=== PATIENT | female | born 1950 | race Caucasian/White ===

== ENCOUNTER 2017-04-18 08:25 | Emergency (ER) | payer BC ==
--- NOTE | 2017-04-18 08:33 | UC ---
Bite Injury/Animal HPI - HPI Summary HPI Summary: 66 YEAR OLD FEMALE PRESENTS WITH COMPLAINS INSECT BITE. - History of Current Complaint Stated Complaint: INSECT BITE Time Seen by Provider: 04/18/17 08:27 - Allergies/Home Medications Allergies/Adverse Reactions: Allergies Allergy/AdvReac Type Severity Reaction Status Date / Time Barbiturates Allergy See Comment Verified 04/18/17 08:30 PMH/Surg Hx/FS Hx/Imm Hx - Surgical History Surgical History: None - Social History Alcohol Use: "as much as I can ... at least two drinks a day" Alcohol Amount: varies depends on mood per pt Substance Use Type: None Smoking Status (MU): Former Smoker Length of Time of Smoking/Using Tobacco: 10 years When Did the Patient Quit Smoking/Using Tobacco: 1977 - Immunization History Most Recent Influenza Vaccination: Not the Review of Systems Constitutional: Negative Skin: Rash Eyes: Negative ENT: Negative Respiratory: Negative Cardiovascular: Negative Gastrointestinal: Negative Genitourinary: Negative Motor: Negative Neurovascular: Negative Musculoskeletal: Negative Neurological: Negative Psychological: Negative All Other Systems Reviewed And Are Negative: Yes Physical Exam Triage Information Reviewed: Yes Eye Exam: Normal ENT Exam: Normal Dental Exam: Normal Neck exam: Normal Neck: Positive: 1 Respiratory Exam: Normal Cardiovascular Exam: Normal Abdominal Exam: Normal Musculoskeletal Exam: Normal Neurological Exam: Normal Psychological Exam: Normal Skin: Positive: rashes Bite Injury Course/Dx - Differential Dx/Diagnosis Provider Diagnoses: BULLS EYE RASH Discharge - Discharge Plan Condition: Stable Disposition: HOME Prescriptions: DOXYcycline CAP(*) [DOXYcycline 100MG CAP(*)] 100 mg PO DAILY #56 cap Patient Education Materials: Insect Bite or Sting (ED) Referrals: No Primary Care Phys,NOPCP [Primary Care Provider] - Addendum entered and electronically signed by Donald To MD 04/18/17 16:37 :
[2017-04-18 08:36] VITALS: BP 135/88
[2017-04-21 16:16] LABS: Lyme Disease IgG Ab WB Negative (Negative)
--- NOTE | 2017-04-21 21:54 | ED ---
Progress - Progress Note Progress Note: SPOKE TO PATIENT TO INCREASE HER CHANGE HER DOXYCYCLINE DOSE TO 100 BID. SHE HAD LABS DRAWN AND THEY WERE NEGATIVE FOR LYME BUT SHE IS ADVISED TO CONTINUE HER MEDICATION WITH THE NEW DIRECTIONS. Course/Dx - Diagnoses Provider Diagnoses: Rash
== END 2017-04-18 09:10 | disposition home or self-care (01) ==
LOC: UCCORT 08:25
DX: R21 Rash and other nonspecific skin eruption (principal); Z87.891 Personal history of nicotine dependence
CPT/HCPCS: 86617; 86618; 99212; G0463

== ENCOUNTER 2017-05-06 07:45 | Emergency (ER) | payer BC ==
[2017-05-06 07:55] VITALS: BP 117/70
--- NOTE | 2017-05-06 08:02 | UC ---
Bite Injury/Animal HPI - HPI Summary HPI Summary: 67 year old female presents for a recheck of her rash. - History of Current Complaint Chief Complaint: UCGeneralIllness Stated Complaint: LYME DISEASE RE CHECK Time Seen by Provider: 05/06/17 07:57 - Allergies/Home Medications Allergies/Adverse Reactions: Allergies Allergy/AdvReac Type Severity Reaction Status Date / Time Barbiturates Allergy See Comment Verified 05/06/17 07:55 PMH/Surg Hx/FS Hx/Imm Hx - Surgical History Surgical History: None Surgery Procedure, Year, and Place: lap - Social History Alcohol Use: Rare Alcohol Amount: varies depends on mood per pt Substance Use Type: None Smoking Status (MU): Former Smoker Length of Time of Smoking/Using Tobacco: 10 years When Did the Patient Quit Smoking/Using Tobacco: 1977 - Immunization History Most Recent Influenza Vaccination: Not the Season Review of Systems Constitutional: Negative Skin: Rash - resolving Eyes: Negative ENT: Negative Respiratory: Negative Cardiovascular: Negative Gastrointestinal: Negative Genitourinary: Negative Motor: Negative Neurovascular: Negative Musculoskeletal: Negative Neurological: Negative Psychological: Negative All Other Systems Reviewed And Are Negative: Yes Physical Exam Triage Information Reviewed: Yes Vital Signs: Initial Vital Signs Temp 36.9 C 05/06/17 07:51 Pulse 63 05/06/17 07:51 Resp 16 05/06/17 07:51 BP 117/70 05/06/17 07:51 Pulse Ox 98 05/06/17 07:51 Eye Exam: Normal ENT Exam: Normal Dental Exam: Normal Neck exam: Normal Neck: Positive: 1 Respiratory Exam: Normal Cardiovascular Exam: Normal Abdominal Exam: Normal Musculoskeletal Exam: Normal Neurological Exam: Normal Psychological Exam: Normal Skin: Positive: rashes - resolving Bite Injury Course/Dx - Differential Dx/Diagnosis Provider Diagnoses: rash Discharge - Discharge Plan Condition: Stable Disposition: HOME Patient Education Materials: Lyme Disease (ED), Tick Bite (ED) Referrals: No Primary Care Phys,NOPCP [Primary Care Provider] -
== END 2017-05-06 08:10 | disposition home or self-care (01) ==
LOC: UCCORT 07:45
DX: R21 Rash and other nonspecific skin eruption (principal); Z87.891 Personal history of nicotine dependence
CPT/HCPCS: 86617; 86618; 99211; G0463

== ENCOUNTER 2017-06-03 07:59 | Emergency (ER) | payer BC ==
[2017-06-03 08:10] VITALS: BP 126/74
--- NOTE | 2017-06-03 08:53 | UC ---
Skin Complaint HPI - HPI Summary HPI Summary: 67 yo female presented weeks ago with rash c/w EM treated for Lyme disease has blood test consistent with early LD (+IgM) Was told to return for confirmation She is asymptomatic - History of Current Complaint Chief Complaint: UCGeneralIllness Time Seen by Provider: 06/03/17 08:28 Stated Complaint: RECHECK-LYME Hx Obtained From: Patient ?: Yes Onset/Duration: Resolved Aggravating: Nothing Alleviating: Nothing Associated Signs & Symptoms: Positive: Rash - Allergy/Home Medications Allergies/Adverse Reactions: Allergies Allergy/AdvReac Type Severity Reaction Status Date / Time Barbiturates Allergy See Comment Verified 06/03/17 08:10 Home Medications: Home Medications NK [No Home Medications Reported] 06/03/17 [History Confirmed 06/03/17] Review of Systems Constitutional: Negative Skin: Negative Eyes: Negative ENT: Negative Respiratory: Negative Cardiovascular: Negative Gastrointestinal: Negative Genitourinary: Negative Motor: Negative Neurovascular: Negative Musculoskeletal: Negative Neurological: Negative Psychological: Negative All Other Systems Reviewed And Are Negative: Yes PMH/Surg Hx/FS Hx/Imm Hx Previously Healthy: Yes - Surgical History Surgical History: None Surgery Procedure, Year, and Place: abdominal laparoscopy - Family History Known Family History: Positive: Hypertension - Social History Alcohol Use: Rare Alcohol Amount: varies depends on mood per pt Substance Use Type: None Smoking Status (MU): Former Smoker Length of Time of Smoking/Using Tobacco: 10 years When Did the Patient Quit Smoking/Using Tobacco: 1977 - Immunization History Most Recent Influenza Vaccination: Not the Season Physical Exam Triage Information Reviewed: Yes Appearance: Well-Appearing, No Pain Distress, Well-Nourished Vital Signs: Initial Vital Signs Temp 98.4 F 06/03/17 08:03 Pulse 58 06/03/17 08:03 Resp 18 06/03/17 08:03 BP 126/74 06/03/17 08:03 Vital Signs Reviewed: Yes Eyes: Positive: Conjunctiva Clear ENT: Positive: Hearing grossly normal. Negative: Nasal congestion, Nasal drainage, Trismus, Muffled/hoarse voice Respiratory: Positive: Lungs clear, Normal breath sounds, No respiratory distress Cardiovascular: Positive: RRR, No Murmur Neurological: Positive: Alert Psychological Exam: Normal Skin Exam: Normal Course/Dx - Course Course Of Treatment: I informed patient that based on her presentation and tests that I am sure she had Lyme. I feel that repeat testing will confirm what we already know. She declined test - Diagnoses Provider Diagnoses: follow up lyme disease Discharge - Discharge Plan Condition: Stable Disposition: HOME Patient Education Materials: Lyme Disease (ED) Referrals: Siobhan Primary Care Phys,NOPCP [Primary Care Provider] - Additional Instructions: You had a rash consistent with Lyme disease You had a blood test consistent with early Lyme disease you were treated for Lyme disease I don't think it is necessary to re stick for for a test to confirm that this was Lyme disease
== END 2017-06-03 08:59 | disposition home or self-care (01) ==
LOC: UCCORT 07:59
DX: A69.20 Lyme disease, unspecified (principal); Z87.891 Personal history of nicotine dependence
CPT/HCPCS: 99211; G0463

== ENCOUNTER 2021-03-21 09:04 | Observation (INO) ==
[2021-03-21] MEDS ORDERED: NS 0.9% 1000 ml BAG 1,000 ML IV ONE ×2 (09:41→11:23)
[2021-03-21 10:11] LABS: Albumin/Globulin Ratio 1.3 (1-3); C Reactive Protein 105.63 mg/L (<8.01); Calcium 9.3 mg/dL (8.6-10.3); EGFR African American 100.1 (>60); EGFR Non-African American 82.7 (>60); Globulin 3.1 g/dL (2-4); Potassium 4.1 mmol/L (3.5-5.0); Total Bilirubin 1.1 mg/dL (0.2-1.0); Total Protein 7.1 g/dL (6.4-8.9)
[2021-03-21] MEDS ORDERED: Iohexol 300 (CONTRAST) 10 ML SDV IV ONE (10:15)
[2021-03-21 10:41] LABS: ABS Eosinophils 0.1 10^3/ul (0-0.6); ABS Monocytes 0.5 10^3/ul (0-0.8); ABS Neutrophils 6.1 10^3/ul (1.5-7.7); Hematocrit 39 % (35-47); Hemoglobin 13.8 g/dL (12.0-16.0); Lymphocyte % 22.7 %; Mean Corpuscular HGB Conc 36 g/dL (31-36); Mean Corpuscular Hemoglobin 30 pg (27-31); Mean Corpuscular Volume 85 fL (80-97); Mean Platelet Volume 8.8 fL (7.4-10.4); Platelet Count 193 10^3/uL (150-450); Red Blood Count 4.56 10^6 /uL (3.70-4.87); Red Cell Distribution Width 13 % (10-15); White Blood Count 8.7 10^3/uL (3.5-10.8)
[2021-03-21 11:20] LABS: Urine Appearance Clear; Urine Bilirubin Negative (Negative); Urine Blood 1+ (Negative); Urine Color Yellow; Urine Glucose Negative (Negative); Urine Ketones Negative (Negative); Urine Nitrite Negative (Negative); Urine Protein Negative (Negative); Urine Specific Gravity 1.012 (1.002-1.030); Urine Urobilinogen Negative (Negative)
[2021-03-21 11:28] LABS: Urine Bacteria 1+ (Absent); Urine Red Blood Cell Trace(0-2/hpf) (Absent); Urine Squamous Epithelial Cell Present (Absent); Urine White Blood Cell Trace(0-5/hpf) (Absent)
[2021-03-21] MEDS ORDERED: Piperacillin/Tazobac ADVAN 3.375 GM in NS 0.9% 100 ml BAG 100 ML IVPB ONE (12:56)
[2021-03-21] MEDS ORDERED: Lactated Ringers 1000 ml BAG 1,000 ML IV SCH (13:00)
[2021-03-21] MEDS ORDERED: Naloxone 0.4 mg VIAL 0.4 mg/ml 1 ml VIAL IV PRN ×3 (13:50→16:36)
[2021-03-21] MEDS ORDERED: DiMENhydriNATE IV 50 mg/ml 1 ml VIAL IV PUSH PRN ×3 (13:50→16:34)
[2021-03-21] MEDS ORDERED: fentaNYL 100 mcg/2 ml 50 MCG/ML VIAL IV PRN ×2 (13:50→16:34)
[2021-03-21] MEDS ORDERED: Midazolam 2 mg/2 ml VIAL 1 mg/ml 2 ml VIAL (2 mg) ONE (13:52)
[2021-03-21] MEDS ORDERED: fentaNYL 100 mcg/2 ml 50 MCG/ML VIAL ONE ×2 (13:53→15:29)
[2021-03-21] MEDS ORDERED: Lidocaine 2% PF 5 ML VIAL ONE (13:53)
[2021-03-21] MEDS ORDERED: Propofol 10 MG/ML 20 ML BTL ONE (13:53)
[2021-03-21] MEDS ORDERED: Succinylcholine 200 mg VIAL 20 mg/ml 10 ml VIAL (200 mg) ONE (13:53)
[2021-03-21] MEDS ORDERED: Rocuronium 50 mg VIAL 10 mg/ml 5 ml VIAL (50 mg) ONE (14:17)
[2021-03-21] MEDS ORDERED: Dexamethasone IV 4 MG/ML VIAL 1 ml VIAL ONE (14:31)
[2021-03-21] MEDS ORDERED: Ondansetron 4 mg VIAL 2 MG/ML 2 ml VIAL ONE (14:31)
[2021-03-21] MEDS ORDERED: Acetaminophen IV 1 GM/100ML 100 ML ONE (14:34)
[2021-03-21] MEDS ORDERED: Ondansetron 4 mg VIAL 2 MG/ML 2 ml VIAL IV PRN (15:08)
[2021-03-21] MEDS: fentaNYL 100 mcg/2 ml 50 MCG/ML VIAL IV PRN ×4 (15:30→15:39)
[2021-03-21] MEDS ORDERED: D5W 1/2 NS KCl 20 meq 1000 ml 1,000 ML IV SCH (17:10)
[2021-03-21] MEDS: Piperacillin/Tazobactam VIAL 3.375 GM in NS 0.9% 100 ml BAG 100 ML IVPB SCH (17:23)
[2021-03-22] MEDS: Piperacillin/Tazobactam VIAL 3.375 GM in NS 0.9% 100 ml BAG 100 ML IVPB SCH ×2 (01:33→09:47)
[2021-03-22 06:47] LABS: ABS Lymphocytes 1.4 10^3/ul (1.0-4.8); ABS Monocytes 0.5 10^3/ul (0-0.8); ABS Neutrophils 5.6 10^3/ul (1.5-7.7); Eosinophil % 0.2 %; Hematocrit 31 % (35-47); Hemoglobin 11.2 g/dL (12.0-16.0); Lymphocyte % 18.2 %; Mean Corpuscular HGB Conc 36 g/dL (31-36); Mean Corpuscular Hemoglobin 31 pg (27-31); Mean Corpuscular Volume 85 fL (80-97); Mean Platelet Volume 8.4 fL (7.4-10.4); Platelet Count 160 10^3/uL (150-450); Red Blood Count 3.64 10^6 /uL (3.70-4.87); Red Cell Distribution Width 13 % (10-15); White Blood Count 7.5 10^3/uL (3.5-10.8)
[2021-03-22 07:54] VITALS: BP 92/47
== END 2021-03-22 09:35 | disposition home or self-care (01) ==
LOC: SSU 09:04 → ED 09:04
PROVIDERS: ADMIT Surgery; ATTEND Surgery

== ENCOUNTER 2023-01-04 05:43 | Inpatient (IN) ==
[~2023-01-04 05:43] MED LIST: Naloxone 0.4 mg VIAL 0.4 mg/ml 1 ml VIAL IV PRN; Ondansetron 4 mg VIAL 2 MG/ML 2 ml VIAL IV PRN
[2023-01-04] MEDS ORDERED: Lactated Ringers 1000 ml BAG 1,000 ML IV SCH ×2 (06:00→09:00)
[2023-01-04] MEDS ORDERED: Buffered Lidocaine 1% SYRIN 1 ml INTRADERM ONE (06:00)
[2023-01-04] MEDS ORDERED: ceFAZolin 2 GM in NS PREMIX 2 GM/100 ML BAG IVPB ONE (06:06)
[2023-01-04] MEDS ORDERED: ceFAZolin 2 GM PREMIX 2 GM/50 ML BAG ONE (06:06)
[2023-01-04] MEDS ORDERED: Midazolam 2 mg/2 ml VIAL 1 mg/ml 2 ml VIAL (2 mg) ONE ×2 (06:24→09:59)
[2023-01-04] MEDS ORDERED: Lidocaine 2% PF 5 ML VIAL ONE (06:24)
[2023-01-04] MEDS ORDERED: Propofol 0 MG/0 ML BTL ONE (06:24)
[2023-01-04] MEDS ORDERED: fentaNYL 100 mcg/2 ml 50 MCG/ML VIAL ONE ×4 (06:57→10:09)
[2023-01-04] MEDS ORDERED: Rocuronium 50 mg VIAL 10 mg/ml 5 ml VIAL (50 mg) ONE (06:57)
[2023-01-04] MEDS ORDERED: Dexamethasone IV 4 MG/ML VIAL 1 ml VIAL ONE (06:58)
[2023-01-04] MEDS ORDERED: Ondansetron 4 mg VIAL 2 MG/ML 2 ml VIAL ONE ×2 (06:58→11:53)
[2023-01-04] MEDS ORDERED: Propofol 10 MG/ML 20 ML BTL ONE (06:58)
[2023-01-04] MEDS ORDERED: Ondansetron ODT 4 mg TAB 4 MG TAB PO PRN (08:22)
[2023-01-04] MEDS ORDERED: Lactulose 30 ml UDC PO PRN (08:22)
[2023-01-04] MEDS ORDERED: Magnesium Hydroxide LIQ 30 ML UDC PO PRN (08:22)
[2023-01-04] MEDS ORDERED: Morphine 2 MG/ML SYRINGE IV PRN (08:22)
[2023-01-04] MEDS ORDERED: Ondansetron 4 mg VIAL 2 MG/ML 2 ml VIAL IV PRN (08:22)
[2023-01-04] MEDS ORDERED: Glycopyrrolate IV 0.2 MG/ML 1 ML VIAL ONE (08:22)
[2023-01-04] MEDS ORDERED: ROPIVACAINE 5 MG/ML 30 ML BTL (0.5%) ONE (08:23)
[2023-01-04] MEDS ORDERED: Vitamin THERAPEUTIC TAB PO SCH (09:00)
[2023-01-04] MEDS ORDERED: Magnesium Hydroxide LIQ 30 ML UDC PO SCH (09:00)
[2023-01-04] MEDS ORDERED: ceFAZolin 1 GM ADVAN 1 GM in NS 0.9% 50 ML 50 ML IVPB SCH (09:00)
[2023-01-04] MEDS: fentaNYL 100 mcg/2 ml 50 MCG/ML VIAL IV PRN ×4 (09:54→10:40)
[2023-01-04] MEDS ORDERED: Tranexamic Acid 1,000 MG in NS 0.9% 50 ML IV ONE (11:00)
[2023-01-04 11:54] LABS: High Sensitivity Troponin 1 Hr 3 pg/mL (<15)
[2023-01-04 15:21] VITALS: BP 138/72
[2023-01-04] MEDS ORDERED: ceFAZolin 1 GM in Dextrose 1 GM/50 ML BAG IVPB SCH (16:00)
== END 2023-01-04 16:05 | disposition home or self-care (01) | DRG 302 ==
LOC: AA 05:43 → SSU 08:22
PROVIDERS: ADMIT Orthopaedic Surgery Adult Reconstructive Orthopaedic Surgery; ATTEND Orthopaedic Surgery Adult Reconstructive Orthopaedic Surgery

== ENCOUNTER 2023-03-11 05:46 | Observation (INO) ==
[2023-03-11] MEDS ORDERED: Famotidine IV 10 MG/ML 2 ml VIAL (20 mg) IV ONE (06:00)
[2023-03-11] MEDS ORDERED: Buffered Lidocaine 1% SYRIN 1 ml INTRADERM ONE (06:00)
[2023-03-11] MEDS ORDERED: Scopolamine 1 mg/72hr PATCH TRANSDERM ONE (06:00)
[2023-03-11] MEDS ORDERED: Lactated Ringers 1000 ml BAG 1,000 ML IV SCH ×2 (06:00→08:00)
[2023-03-11] MEDS ORDERED: Scopolamine 1 mg/72hr PATCH ONE (06:03)
[2023-03-11] MEDS ORDERED: ceFAZolin 2 GM in NS PREMIX 2 GM/100 ML BAG IVPB ONE (06:04)
[2023-03-11] MEDS ORDERED: Famotidine IV 10 MG/ML 2 ml VIAL (20 mg) ONE (06:04)
[2023-03-11] MEDS ORDERED: Buffered Lidocaine 1% SYRIN 1 ml ONE (06:04)
[2023-03-11] MEDS ORDERED: Phenylephrine IV 10 MG/ML 1 ml VIAL ONE (06:52)
[2023-03-11] MEDS ORDERED: Lidocaine 2% PF 5 ML VIAL ONE (06:52)
[2023-03-11] MEDS ORDERED: Midazolam 2 mg/2 ml VIAL 1 mg/ml 2 ml VIAL (2 mg) ONE ×2 (06:52→08:38)
[2023-03-11] MEDS ORDERED: Propofol 10 MG/ML 20 ML BTL ONE ×2 (06:52→07:06)
[2023-03-11] MEDS ORDERED: Ketamine HCL 50 mg/ml 10 ml VIAL (500 MG) ONE ×2 (06:57→08:38)
[2023-03-11 06:59] LABS: Rapid COVID-19 Molecular Undetected (Undetected)
[2023-03-11] MEDS ORDERED: ROPIVACAINE 5 MG/ML 30 ML BTL (0.5%) ONE (07:05)
[2023-03-11] MEDS ORDERED: Rocuronium 50 mg VIAL 10 mg/ml 5 ml VIAL (50 mg) ONE ×2 (07:06→08:19)
[2023-03-11] MEDS ORDERED: fentaNYL 250 mcg/5 ml 50 MCG/ML 5 ml VIAL (250 MCG) ONE (07:07)
[2023-03-11] MEDS ORDERED: Ondansetron 4 mg VIAL 2 MG/ML 2 ml VIAL IV PRN (07:51)
[2023-03-11] MEDS ORDERED: Lactulose 30 ml UDC PO PRN (07:51)
[2023-03-11] MEDS ORDERED: Magnesium Hydroxide LIQ 30 ML UDC PO PRN (07:51)
[2023-03-11] MEDS ORDERED: Morphine 2 MG/ML SYRINGE IV PRN (07:51)
[2023-03-11] MEDS ORDERED: Ondansetron ODT 4 mg TAB 4 MG TAB PO PRN (07:51)
[2023-03-11] MEDS ORDERED: Glycopyrrolate IV 0.2 MG/ML 1 ML VIAL ONE ×2 (08:11→08:12)
[2023-03-11] MEDS ORDERED: Esmolol 10 MG/ML 10 ML (100 mg) IV ONE (08:21)
[2023-03-11] MEDS ORDERED: Dexamethasone IV 4 MG/ML VIAL 1 ml VIAL ONE (08:26)
[2023-03-11] MEDS ORDERED: Ondansetron 4 mg VIAL 2 MG/ML 2 ml VIAL ONE (08:26)
[2023-03-11] MEDS ORDERED: HYDROmorphone 0.5 MG/0.5 ML SYRINGE ONE (08:33)
[2023-03-11] MEDS ORDERED: Tranexamic Acid 1,000 MG in NS 0.9% 50 ML IV ONE (09:00)
[2023-03-11] MEDS ORDERED: Magnesium Hydroxide LIQ 30 ML UDC PO SCH (09:00)
[2023-03-11] MEDS ORDERED: Vitamin THERAPEUTIC TAB PO SCH (09:00)
[2023-03-11] MEDS ORDERED: Naloxone 0.4 mg VIAL 0.4 mg/ml 1 ml VIAL IV PRN (09:23)
[2023-03-11] MEDS ORDERED: fentaNYL 100 mcg/2 ml 50 MCG/ML VIAL ONE ×3 (09:53→10:37)
[2023-03-11] MEDS: fentaNYL 100 mcg/2 ml 50 MCG/ML VIAL IV PRN ×5 (09:54→10:38)
[2023-03-11] MEDS: HYDROmorphone 1 MG/1 ML SYRINGE IV PRN ×2 (10:17→10:32)
[2023-03-11] MEDS ORDERED: HYDROmorphone 1 MG/1 ML SYRINGE ONE (10:17)
[2023-03-11] MEDS ORDERED: ceFAZolin 1 GM ADVAN 1 GM in NS 0.9% 50 ML 50 ML IVPB SCH (16:00)
[2023-03-11 16:20] VITALS: BP 134/70
== END 2023-03-11 16:30 | disposition home or self-care (01) ==
LOC: AA 05:46 → INTOOBSV 05:46 → SSU 11:32
PROVIDERS: ADMIT Orthopaedic Surgery Adult Reconstructive Orthopaedic Surgery; ATTEND Orthopaedic Surgery Adult Reconstructive Orthopaedic Surgery